=== PATIENT | female | born 1945 | race Caucasian/White ===

== ENCOUNTER → 2017-03-12 | Outpatient (CLI) | payer MEDICARE | END | disposition home or self-care (01) | LOC: PCVCIMAG 10:00 | PROVIDERS: ATTEND Internal Medicine Cardiovascular Disease | DX: I42.8 Other cardiomyopathies (principal); I48.91 Unspecified atrial fibrillation; E78.00 Pure hypercholesterolemia, unspecified; I34.0 Nonrheumatic mitral (valve) insufficiency; R60.0 Localized edema | CPT/HCPCS: 93005; 93306; G0463 ==

== ENCOUNTER → 2017-09-17 | Outpatient (CLI) | payer MEDICARE | END | disposition home or self-care (01) | LOC: PCVCCLINIC 11:30 | PROVIDERS: ATTEND Internal Medicine Cardiovascular Disease | DX: I21.29 ST elevation (STEMI) myocardial infarction involving other sites (principal); I48.91 Unspecified atrial fibrillation; I42.9 Cardiomyopathy, unspecified; I10 Essential (primary) hypertension; E78.00 Pure hypercholesterolemia, unspecified; I49.3 Ventricular premature depolarization; Z79.899 Other long term (current) drug therapy | CPT/HCPCS: 36415; 93005; G0463 ==

== ENCOUNTER → 2017-10-01 | Outpatient (CLI) | payer MEDICARE | END | disposition home or self-care (01) | LOC: PCVCCLINIC 12:32 | PROVIDERS: ATTEND Internal Medicine Cardiovascular Disease | DX: I10 Essential (primary) hypertension (principal); E78.00 Pure hypercholesterolemia, unspecified; I48.91 Unspecified atrial fibrillation | CPT/HCPCS: 36415 ==

== ENCOUNTER → 2017-12-24 | Outpatient (CLI) | payer MEDICARE | END | disposition home or self-care (01) | LOC: PCVCCLINIC 09:37 | DX: I48.91 Unspecified atrial fibrillation (principal); I10 Essential (primary) hypertension; E78.00 Pure hypercholesterolemia, unspecified; R60.9 Edema, unspecified; Z79.899 Other long term (current) drug therapy | CPT/HCPCS: 93005; G0463 ==

== ENCOUNTER → 2018-01-16 | Outpatient (CLI) | payer MEDICARE ==
[~2018-01-16] MED LIST: BENZOCAINE ONE 20% MUCOSAL SPRAY.; IV NORMAL SALINE 1000ML BAG 1,000 ML; MIDAZOLAM HCL/PF 2 MG/2 ML VIAL.; fentaNYL PF VIAL 100 MCG/2 ML VIAL
== END | disposition home or self-care (01) ==
LOC: PCVCINTER 09:02
DX: I34.1 Nonrheumatic mitral (valve) prolapse (principal); I48.91 Unspecified atrial fibrillation; I11.9 Hypertensive heart disease without heart failure; E78.5 Hyperlipidemia, unspecified
CPT/HCPCS: 93312; 93325; 99152; J2250; J3010; J7030

== ENCOUNTER → 2018-07-08 | Outpatient (CLI) | payer MEDICARE | END | disposition home or self-care (01) | LOC: PCVCIMAG 15:00 | DX: I48.91 Unspecified atrial fibrillation (principal); I10 Essential (primary) hypertension; R60.0 Localized edema; I42.8 Other cardiomyopathies; I08.1 Rheumatic disorders of both mitral and tricuspid valves | CPT/HCPCS: 93005; 93306; G0463 ==

== ENCOUNTER → 2018-07-16 | Outpatient (CLI) | payer MEDICARE ==
--- NOTE | 2018-07-16 10:29 | PCVCIMAG ---
APPROVED REPORT Patient Location: Echo lab Room #: Stress Nurse: Janel Reina RN Treadmill Stress Test Indications- moderate mitral regurgitation, functional capacity, dyspnea, non ischemic cardiomyopathy, LBBB The patient exercised according to the JEMMA protocol for 3:43 mins; achieving a work level of 6.3 METS. The resting heart rate of 60 bpm millie to a maximum heart rate of 111 bpm. This value represent 75 % of the maximal, age-predicted heart rate. The resting blood pressure of 118/78 mmHg, millie to a maximum blood pressure of 172/80 mmHg. The exercise test was stopped due to limiting dyspnea and fatigue. Conclusion 1. Clinical response, nonischemic. 2. Stress ECG response, nondiagnostic. 3. Exercise capacity, below average.
== END | disposition home or self-care (01) ==
LOC: PCVCIMAG 13:44
PROVIDERS: ATTEND Internal Medicine Cardiovascular Disease
DX: I34.0 Nonrheumatic mitral (valve) insufficiency (principal); I25.5 Ischemic cardiomyopathy; I44.7 Left bundle-branch block, unspecified; I10 Essential (primary) hypertension; I48.0 Paroxysmal atrial fibrillation
CPT/HCPCS: 36415; 93017

== ENCOUNTER → 2019-02-25 | Outpatient (CLI) | payer MEDICARE ==
--- NOTE | 2019-02-25 15:11 | PCVCIMAG ---
APPROVED REPORT Study performed: 02/25/2019 13:41:48 EXAM: Comprehensive 2D, Doppler, and color-flow Echocardiogram Patient Location: Echo lab Status: routine BSA: 2.29 HR: 70 bpmBP: 140/78 mmHg Rhythm: LBBB Other Information Study Quality: Adequate Risk Factors: Cardiac Risk Factors: HTN Indications Atrial Fibrillation Cardiomyopathy mitral regurgitation 2D Dimensions IVSd: 11.20 (7-11mm) LVDd: 66.77 mm PWd: 10.87 (7-11mm)Ascending Ao: 34.08 (22-36mm) LVDs: 50.56 (25-40mm) Left Atrium: 54.59 (27-40mm) Aortic Root: 35.60 mm LV Single Plane 4CH: 45.10 % LV Single Plane 2CH: 46.47 % Biplane EF: 42.0 % Volumes Left Atrial Volume (Systole) Single Plane 4CH: 163.49 mLSingle Plane 2CH: 165.06 mL LA ESV Index: 78.00 mL/m2 Aortic Valve AoV Peak Rodolfo.: 1.46 m/s AO Peak Gr.: 8.55 mmHgLVOT Max P.33 mmHg LVOT Max V: 0.91 m/s Mitral Valve E/A Ratio: 0.7 MV Decel. Time: 278.02 ms MV E Max Rodolfo.: 0.59 m/s MV A Rodolfo.: 0.81 m/s IVRT: 110.73 ms Pulmonary Valve PV Peak Rodolfo.: 0.74 m/sPV Peak Gr.: 2.19 mmHg Pulmonary Vein P Vein S: 0.31 m/sP Vein A: 0.30 m/s P Vein D: 0.80 m/sP Vein A Dur.: 173.0 msec P Vein S/D Ratio: 0.39 Tricuspid Valve TR Peak Rodolfo.: 2.75 m/s TR Peak Gr.: 30.15 mmHg Left Ventricle The left ventricle is normal size. There is normal LV segmental wall motion. There is normal left ventricular wall thickness. Left ventricular systolic function is borderline. LVEF is 50-55%. Grade I - abnormal relaxation pattern. Right Ventricle The right ventricle is normal size. The right ventricular systolic function is normal. Atria Left atrium is severely dilated. Right atrium is moderately dilated. Aortic Valve The aortic valve is normal in structure. No aortic regurgitation is present. There is no aortic valvular stenosis. Mitral Valve The mitral valve is normal in structure. Bi-leaflet prolapse. Moderate to severe mitral regurgitation No evidence of mitral valve stenosis. Tricuspid Valve The tricuspid valve is normal in structure. Mild tricuspid regurgitation with PAP of 40 mmHg. Pulmonic Valve The pulmonary valve is normal in structure. Mild pulmonic regurgitation. Great Vessels The aortic root is normal in size. IVC is normal in size and collapses >50% with inspiration. Pericardium There is no pericardial effusion. There is no pleural effusion. <Conclusion> The left ventricle is normal size. There is normal left ventricular wall thickness. Left ventricular systolic function is borderline. Grade I - abnormal relaxation pattern. The right ventricle is normal size. Left atrium is severely dilated. Right atrium is moderately dilated. The aortic valve is normal in structure. The mitral valve is normal in structure. Bi-leaflet prolapse. Moderate to severe mitral regurgitation Mild tricuspid regurgitation with PAP of 40 mmHg.
== END | disposition home or self-care (01) ==
LOC: PCVCIMAG 14:07
PROVIDERS: ATTEND Internal Medicine Cardiovascular Disease
DX: I08.1 Rheumatic disorders of both mitral and tricuspid valves (principal); I48.91 Unspecified atrial fibrillation; I42.8 Other cardiomyopathies; I10 Essential (primary) hypertension; E78.5 Hyperlipidemia, unspecified; E03.9 Hypothyroidism, unspecified
CPT/HCPCS: 93005; 93306; G0463

== ENCOUNTER → 2019-09-01 | Outpatient (CLI) | payer MEDICARE | END | disposition home or self-care (01) | LOC: PCVCCLINIC 16:12 | PROVIDERS: ATTEND Internal Medicine Cardiovascular Disease | DX: I48.91 Unspecified atrial fibrillation (principal); I34.0 Nonrheumatic mitral (valve) insufficiency; I10 Essential (primary) hypertension; R60.9 Edema, unspecified; E03.9 Hypothyroidism, unspecified; Z79.899 Other long term (current) drug therapy | CPT/HCPCS: 93005; G0463 ==